=== PATIENT | female | born 1950 | race Caucasian/White ===

== ENCOUNTER → 2019-04-06 | Outpatient (CLI) | payer OTHER ==
[~2019-04-06] MED LIST: ALIVE VITAMIN PO; AMITRIPTYLINE H10 M3 PO; ATORVASTATIN CA40 MG PO; AZITHROMYCIN 2250 MG PO; B12INJ SUBQ; BENZONATATE100 MG PO; CALCIUM 600 +1 EACH PO; CALICUM 500+D1 EACH PO; CEFDINIR300 MG PO; CEFUROXIME500 MG PO; CELEBREX100 MG/1 C PO; CELEXA40 MG PO; CIPRO250 MG PO; CIPRO500 M1 PO; CIPRO500 MG PO; CLARITIN10 MG PO; COLACE100 MG PO; COUMADIN 2 MG TA2 M1 PO; COUMADIN 5 MG TA5 M1 PO; COUMADIN7.5 MG PO; CYMBALTA30 MG PO; CYMBALTA60 MG PO; DOMPERIDONE PO; ENOXAPARIN40 MG/0.1 SUBQ; ERYTHROMYCIN250 MG PO; FLEXERIL PO; HCTZ PO; HYDROCHLOROTHIA25 M1 PO; HYDROCHLOROTHIA25 M2 PO; HYDROCODON-ACE1 EAC7 PO; HYDROCODONE-AP1 EA15 PO; HYDROCODONE-AP1 EAC6 PO; IBUPROFEN 800800 M1 PO; LASIX 40 MG TAB40 M1 PO; LEVOTHYROXIN0.125 M1 PO; LEVOTHYROXIN0.137 M1 PO; LEVSIN0.125 MG SUBLING; LIPITOR10 MG PO; LISINOPRIL10 MG PO; LISINOPRIL20 MG PO; LISINOPRIL5 MG PO; LOPERAMIDE 2 MG2 M1 PO; METOPROLOL SUCC25 M1 PO; MOM PO; MULTIVITAMIN W1 EACH PO; NAMENDA 5 MG TAB5 M1 PO; NEURONTIN 300300 M1 PO; NEURONTIN600 MG PO; NORCO 5-325 TA1 EAC1 PO; NORCO 5-325 TA1 EACH PO; OCUVITE TABLET1 EAC1 PO; OXYCODONE HCL15 MG PO; PAXIL 20 MG TAB20 M1 PO; PERCOCET PO; PHENERGAN25 MG RE; POTASSIUM20 PO; PREDNISONE 10 M10 M1 PO; PREDNISONE 10 M10 MG PO; PREDNISONE 20 M20 MG PO; PRILOSEC 20 MG20 MG PO; PRILOSEC40 MG PO; PRINZIDE 20-251 EACH PO; PROTONIX40 M1 PO; PROZAC20 MG PO; RECLAST 55 MG/100 M IV; REQUIP 1 MG TABL1 M1 PO; REQUIP2 MG PO; ROBAXIN 750 MG750 M1 PO; ROPINIROLE HCL2 M1 PO; ROXICODONE5 MG PO; SIMETHICON CHEW80 M1 PO; SYNTHROID125 MCG PO; SYNTHROID150 MCG PO; TYLENOL EXTRA500 MG PO; TYLENOL WITH CO1 TA1 PO; ULTRAM 50MG TAB50 MG PO; VAGIFEM25 MCG VG; VANCOCIN 125 M125 M1 PO; VENTOLIN HFA 1818 GM INH; VIACTIV MULTI-1 EACH PO; VICODIN 5-5001 EACH PO; VITAMIN D2000 UNIT PO; VITAMIN D5000 UNIT PO; WELLBUTRIN XL150 MG PO; XARELTO10 MG PO; XARELTO20 MG PO; ZANTAC 150MG T150 MG PO; ZITHROMAX250 MG PO; ZOCOR 20 MG TAB20 MG PO; ZOFRAN ODT4 MG PO; ZOFRAN4 MG PO
== END ==
LOC: RAD 11:34
DX: M18.11 Unilateral primary osteoarthritis of first carpometacarpal joint, right hand (principal); R35.0 Frequency of micturition; Z68.28 Body mass index [BMI] 28.0-28.9, adult

== ENCOUNTER 2019-04-07 13:20 | Emergency (ER) | payer OTHER ==
[~2019-04-07] VITALS: Ht 162.6 cm; Wt 70.3 kg
[~2019-04-07 13:20] MED LIST changes: -CIPRO500 M1 PO; -TYLENOL WITH CO1 TA1 PO
[2019-04-07 13:45] LABS: URINE BILIRUBIN NEGATIVE (Negative); URINE BLOOD 2+ (Negative); URINE CLARITY CLEAR; URINE GLUCOSE-RANDOM* NEGATIVE (Negative); URINE KETONES NEGATIVE (Negative); URINE LEUKOCYTES-REFLEX 3+ (Negative); URINE NITRITE-REFLEX NEGATIVE (Negative); URINE PROTEIN (DIPSTICK) NEGATIVE (Negative); URINE SPECIFIC GRAVITY <= 1.005 (1.005-1.035); URINE UROBILINOGEN 0.2 E.U./dl (0.2-1.0)
[2019-04-07 13:46] LABS: URINE COLOR STRAW
[2019-04-07 13:55] LABS: BACTERIA-REFLEX 1-9 Few /HPF (None Seen); CASTS None Seen /LPF (None Seen); CRYSTALS None Seen /LPF (None Seen); SQUAMOUS None Seen /LPF (0-3); URINE RBC None Seen /HPF (0-2); URINE WBC-REFLEX 6-15 Few /HPF (0-5)
[2019-04-07 14:52] LABS: ABSOLUTE NEUTROPHILS 5.3 thou/uL (1.4-8.2); BASOPHILS 1.3 % (0.0-2.0); EOSINOPHILS 13.7 % (0.0-3.0); HEMATOCRIT 34.8 % (37.0-47.0); HEMOGLOBIN 11.7 gm/dL (12.0-15.0); LYMPHOCYTES 14.4 % (24.0-44.0); MCH 29.5 pg (26.0-34.0); MCHC 33.7 g/dL (28.0-37.0); MCV 87.6 fL (80.0-100.0); MONOCYTES 8.3 % (1.0-8.0); PLATELET COUNT 288 thou/uL (150-400); POLYS 62.3 % (36.0-66.0); RBC 3.98 mil/uL (4.20-5.00); RDW 15.1 % (10.5-14.5); WBC 8.5 thou/uL (4.0-11.0)
[2019-04-07 14:56] LABS: CALCIUM 9.2 mg/dL (8.5-10.1); CREATININE 0.8 mg/dL (0.6-1.0); POTASSIUM 3.7 mmol/L (3.5-5.1)
[2019-04-07 14:59] LABS: APTT 29.4 Seconds (24.5-32.8); PROTIME 9.4 Seconds (9.3-11.4)
[2019-04-07 15:02] LABS: ALBUMIN 3.5 g/dL (3.4-5.0); TOTAL BILIRUBIN 0.3 mg/dL (<0.1-1.0); TOTAL PROTEIN 7.3 g/dL (6.4-8.2)
[2019-04-07 17:35] VITALS: BP 151/87
[2019-04-07] MEDS ORDERED: CIPRO500 M1 PO (17:36)
[2019-04-07] MEDS ORDERED: FLEXERIL PO (17:36)
[2019-04-07] MEDS ORDERED: TYLENOL WITH CO1 TA1 PO ×3 (17:36→18:00)
== END 2019-04-07 17:47 | disposition home or self-care (01) ==
LOC: ER 13:20
PROVIDERS: Emergency Medicine; Physician Assistant
DX: N39.0 Urinary tract infection, site not specified (principal); N13.4 Hydroureter; L76.34 Postprocedural seroma of skin and subcutaneous tissue following other procedure; M19.90 Unspecified osteoarthritis, unspecified site; K21.9 Gastro-esophageal reflux disease without esophagitis; E03.9 Hypothyroidism, unspecified; G89.29 Other chronic pain; F32.9 Major depressive disorder, single episode, unspecified; Z96.653 Presence of artificial knee joint, bilateral; Z90.49 Acquired absence of other specified parts of digestive tract; Z90.710 Acquired absence of both cervix and uterus; Z88.0 Allergy status to penicillin; Z88.5 Allergy status to narcotic agent; Z87.891 Personal history of nicotine dependence

== ENCOUNTER 2021-04-17 12:20 | Emergency (ER) | payer OTHER ==
[~2021-04-17] VITALS: Ht 162.6 cm; Wt 74.8 kg
[~2021-04-17 12:20] MED LIST changes: +CIPRO500 M1 PO; +KEFLEX500 M2 PO; +TYLENOL WITH CO1 TA1 PO
[2021-04-17 12:50] LABS: HEMOGLOBIN 12.7 gm/dL (12.0-15.0); MCH 30.6 pg (26.0-34.0); MCHC 33.4 g/dL (28.0-37.0); MCV 91.6 fL (80.0-100.0); PLATELET COUNT 232 thou/uL (150-400); RBC 4.14 mil/uL (4.20-5.00); RDW 13.9 % (10.5-14.5); WBC 2.9 thou/uL (4.0-11.0)
[2021-04-17 12:58] LABS: CALCIUM 8.5 mg/dL (8.5-10.1); CREATININE 1.1 mg/dL (0.6-1.0); POTASSIUM 4.3 mmol/L (3.5-5.1)
[2021-04-17 13:08] LABS: ALBUMIN 3.9 g/dL (3.4-5.0); TOTAL BILIRUBIN 0.2 mg/dL (0.2-1.0); TOTAL PROTEIN 7.2 g/dL (6.4-8.2)
[2021-04-17 13:30] LABS: BE(vivo) -4.5 mmol/L (-2 to +3); HCO3 19.8 mmol/L (22.0-26.0); PCO2 33.8 mmHg (35.0-45.0); PO2 89.2 mmHg (80.0-100.0); pH 7.385 (7.360-7.450); sO2 96.8 % (92.0-98.0)
[2021-04-17 14:20] LABS: ABSOLUTE NEUTROPHILS 1.2 thou/uL (1.4-8.2); ATYPICAL LYMPHS 1 %
[2021-04-17 14:21] LABS: PLATELET ESTIMATE NORMAL
[2021-04-17] MEDS ORDERED: SPIRONOLACTONE25 MG PO (14:51)
[2021-04-17] MEDS ORDERED: TOPROL XL50 MG PO (14:52)
[2021-04-17] MEDS ORDERED: LEVSIN0.125 MG PO (14:58)
[2021-04-17] MEDS ORDERED: FLEXERIL PO (14:58)
[2021-04-17] MEDS ORDERED: MOBIC7.5 MG PO (14:58)
[2021-04-17 17:40] VITALS: BP 125/107
--- NOTE | 2021-04-18 07:45 | EKG ---
[address] [address] ELECTROCARDIOGRAM REPORT Name: GABRIELA LOVELL Room #: [facility]#: [id number] Admission: 04/17/21 Attend Phys: Discharge: 04/17/21 Date of : 50 Report #: [id number] [facility] ED Test Date: 2021-04-17 Test Time: 12:33:22 Pat Name: GABRIELA LOVELL Department: Room: Gender: F Receiving Supervisor: [place]ISH : 1950 Requested By: Merced Bonilla Order Number: [id number] MD: Az Clark Measurements Intervals Anderson Rate: 72 P: 41 PA: 137 QRS: 0 QRSD: 139 T: 85 QT: 436 QTc: 478 Interpretive Statements Sinus rhythm Left bundle branch block No previous ECG available for comparison Electronically Signed On 04-18-2021 7:45:36 [employer] by Az Clark [email or web address] <ELECTRONICALLY SIGNED> By: Az Clark MD, [facility] 04/18/21 0745 1233 1233 Az Clark MD, FACC /EPI
== END 2021-04-17 17:40 | disposition home or self-care (01) ==
LOC: ER 12:20
PROVIDERS: Emergency Medicine
DX: U07.1 COVID-19 (principal); R06.00 Dyspnea, unspecified; I44.7 Left bundle-branch block, unspecified; I10 Essential (primary) hypertension; E03.9 Hypothyroidism, unspecified; K21.9 Gastro-esophageal reflux disease without esophagitis; F32.9 Major depressive disorder, single episode, unspecified; I25.10 Atherosclerotic heart disease of native coronary artery without angina pectoris; Z90.49 Acquired absence of other specified parts of digestive tract; Z98.890 Other specified postprocedural states; Z90.89 Acquired absence of other organs; Z86.718 Personal history of other venous thrombosis and embolism; Z79.899 Other long term (current) drug therapy; Z79.891 Long term (current) use of opiate analgesic; Z79.1 Long term (current) use of non-steroidal anti-inflammatories (NSAID); Z88.0 Allergy status to penicillin; Z87.891 Personal history of nicotine dependence